=== PATIENT | male | born 1955 | race Caucasian/White ===

== ENCOUNTER → 2020-06-21 | Outpatient (CLI) | payer MEDICARE, OTHER ==
[~2020-06-21] MED LIST: FENTANYL CITRATE/PF 100MCG/2 ML INJ ONE; MIDAZOLAM HCL 2 MG/2 ML VIAL ONE
[2020-06-21 08:01] LABS: HEMOGLOBIN 13.9 g/dL (14.0-18.0)
[2020-06-21 08:18] LABS: INR 0.84; PROTHROMBIN TIME 11.9 seconds (11.9-14.5)
[2020-06-21 08:19] LABS: PARTIAL THROMBOPLASTIN TIME 28.3 seconds (23.8-35.5)
--- NOTE | 2020-06-21 09:12 | Diagnostic Imaging Report ---
EXAM: Thyroid Ultrasound INDICATION: ^[id number] ^[id number] ^THYROID NODULE COMPARISON: None TECHNIQUE: Transverse and sagittal images were obtained of the thyroid gland. FINDINGS: Thyroid gland: Size: Right lobe: 4.5 x 1.7 x 2.1 cm, Normal in size Left lobe: 6.8 x 1.5 x 1.7 cm, Normal in size Isthmus: 0.4 cm, Normal in size Appearance: Homogeneous echotexture without increased vascularity Masses/Nodules: Right lobe: No nodule seen Left lobe: 2.8 x 2.0 x 1.9 cm solid (2 pts) nodule in the inferior pole/inferior to the left thyroid lobe with smooth margin (0 pts), grbbf-teko-cypf (0 pts), isoechoic (1 pt), and no calcifications (0 pts). TR3c (>2.5 cm), Mildly Suspicious: FNA. 1.0 x 0.6 x 0.8 cm calcification in the mid left thyroid lobe. Parathyroid: No focal parathyroid masses. IMPRESSION: Left lobe: 2.8 x 2.0 x 1.9 cm solid (2 pts) nodule in the inferior pole/inferior to the left thyroid lobe with smooth margin (0 pts), pxlmf-poav-hjie (0 pts), isoechoic (1 pt), and no calcifications (0 pts). TR3c (>2.5 cm), Mildly Suspicious: FNA. 1.0 x 0.6 x 0.8 cm calcification in the mid left thyroid lobe. TI-RADS Lexicon: TR1, Benign: No FNA TR2, Not Suspicious: No FNA. TR3a (<1.5 cm): No follow-up. TR3b (1.5-2.5 cm), Mildly Suspicious: Follow at 1, 3, 5 years. TR3c (>2.5 cm), Mildly Suspicious: FNA. TR4a (<1.0 cm): No follow-up. TR4b (1.0-1.5 cm), Moderately Suspicious: Follow at 1, 2, 3, 5 years. TR4c (>1.5 cm), Moderately Suspicious: FNA. TR5a (<0.5 cm): No follow-up. TR5b (0.5-1.0 cm), Highly Suspicious: Follow at 1, 2, 3, 4, 5 years. TR5c (>1.0 cm), Highly Suspicious: FNA. *Rebiopsy if new suspicious features *No recommendation at this time for significant interval growth. Nodule Characteristics: * Benign features: cystic, hyperechoic, comet-tail artifact, complete halo * Minor suspicious features: solid, hypoechoic, other calcifications * Major suspicious features: microcalcifications, marked hypoechoic (less than strap muscle), suspicious lymph nodes, taller than wide, lobulated or ill-defined margins. Literature: ACR Thyroid Imaging, Reporting and Data System (TI-RADS): White Paper of the ACR TI-RADS Committee. J Am Efrain Radiol 2017. Signed by: Dr. John Laughlin M.D. on 06/21/2020 9:09 AM
--- NOTE | 2020-06-21 10:38 | Diagnostic Imaging Report ---
PROCEDURE: CT-guided left upper lobe lung mass biopsy Procedural Personnel Attending physician(s): Kevin Sanchez MD Fellow physician(s): None Resident physician(s): None Advanced practice provider(s): None Pre-procedure diagnosis: Left upper lobe lung mass Post-procedure diagnosis: Same Indication: Histopathologic diagnosis Previous biopsy of same target (QCDR): No Additional clinical history: None Complications: No immediate complications. IMPRESSION: CT-guided biopsy of left upper lobe lung mass. Plan: Specimen(s) sent for evaluation. PROCEDURE SUMMARY: - Percutaneous CT-guided core needle and fine needle aspiration biopsy biopsy - Additional procedure(s): None PROCEDURE DETAILS: Pre-procedure Reference imaging for biopsy target: Outside chest CT Consent: Informed consent for the procedure including risks, benefits and alternatives was obtained and time-out was performed prior to the procedure. Preparation: The site was prepared and draped using maximal sterile barrier technique including cutaneous antisepsis. Anesthesia/sedation Level of anesthesia/sedation: Moderate sedation (conscious sedation) 1mg Versed, 50mcg fentanyl Anesthesia/sedation administered by: Independent trained observer under attending supervision with continuous monitoring of the patient?s level of consciousness and physiologic status Total intra-service sedation time (minutes): 45 Imaging prior to biopsy The patient was positioned supine. Initial imaging was performed using noncontrast CT. Biopsy target: - Maximal diameter (cm): 3.4 - Location: Left upper lobe Other findings: None Biopsy Local anesthesia was administered. Under CT guidance, the biopsy needle was advanced to the target and biopsy was performed. Coaxial needle: 19 gauge Core needle biopsy device: [employer] Core needle size: 20 gauge Number of core specimens: 3 Fine needle aspiration device: Chiba Fine needle size: 22g Number of FNA specimens: 3 On-site biopsy touch preparation: Yes Additional sampling recommendations: None Preliminary assessment of sample adequacy: Adequate Needle removal The biopsy needle was removed and a sterile dressing was applied. Tract embolization: None Imaging following biopsy Immediate post-biopsy imaging was performed using noncontrast CT. Post-biopsy imaging findings: Tiny 1mm left anterior pneumothorax. Contrast Contrast agent: None Contrast volume (mL): [address] dose length product (mGy-cm): 2919 Additional Details Additional description of procedure: None Equipment details: None Specimens removed: Biopsy samples as detailed above Estimated blood loss (mL): Less than 10 Standardized report: [id number] Attestation Signer name: Kevin Sanchez MD I attest that I was present for the entire procedure. I reviewed the stored images and agree with the report as written. Signed by: Kevin Sanchez MD on 06/21/2020 10:34 AM
--- NOTE | 2020-06-21 11:23 | Diagnostic Imaging Report ---
EXAMINATION: CHEST SINGLE (NOT PORTABLE) INDICATION: Postprocedural COMPARISON: CT-guided lung biopsy of earlier the same day FINDINGS: LINES/TUBES:None LUNGS:The lungs are well-inflated. Left upper lobe mass. No additional focal consolidation. PLEURA:No pleural effusion or pneumothorax. MEDIASTINUM:The cardiomediastinal silhouette appears normal in size and shape. BONES/SOFT TISSUES:No acute osseous injury. Partially visualized cervical spine fusion hardware. ABDOMEN:No free air under the diaphragm. IMPRESSION: No pneumothorax status post left upper lobe lung biopsy. Left upper lobe mass. Signed by: Kevin Sanchez MD on 06/21/2020 11:20 AM
--- NOTE | 2020-06-21 14:57 | Diagnostic Imaging Report ---
EXAMINATION: CHEST SINGLE (PORTABLE) INDICATION: Postprocedural COMPARISON: CT-guided lung biopsy of earlier the same day, chest radiograph earlier the same day FINDINGS: LINES/TUBES:None LUNGS:The lungs are well-inflated. Left upper lobe mass. No additional focal consolidation. PLEURA:No pleural effusion or pneumothorax. MEDIASTINUM:The cardiomediastinal silhouette appears normal in size and shape. BONES/SOFT TISSUES:No acute osseous injury. Partially visualized cervical spine fusion hardware. ABDOMEN:No free air under the diaphragm. IMPRESSION: No pneumothorax status post left upper lobe lung biopsy. Left upper lobe mass. Signed by: Kevin Sanchez MD on 06/21/2020 2:53 PM
== END ==
LOC: US 07:38
PROVIDERS: ATTEND Emergency Medicine
DX: R91.8 Other nonspecific abnormal finding of lung field (principal); E04.1 Nontoxic single thyroid nodule; Z11.59 Encounter for screening for other viral diseases
CPT/HCPCS: 10009; 32405; 36415; 71045 ×2; 76536; 85014; 85049; 85610; 85730; 88172; 88173; 88305; U0002; 99152; 99153; J2250; J3010

== ENCOUNTER → 2020-07-13 | Outpatient (CLI) | payer MEDICARE, OTHER | LOC: US 08:39 | PROVIDERS: ATTEND Emergency Medicine | DX: C34.02 Malignant neoplasm of left main bronchus (principal); E04.1 Nontoxic single thyroid nodule | CPT/HCPCS: 10005; 88172; 88173; 88305 ==